=== PATIENT | male | born 1990 | race Asian ===

== ENCOUNTER → 2016-12-28 | Outpatient (CLI) | payer OTHER ==
[~2016-12-28] MED LIST: ISN300 PO; OPTIRAY 320 IV PRN; PYR500 PO; RFM300 PO; [UNRECOGNIZED DRUG - CODE] PO
--- NOTE | 2016-12-28 13:41 | DIAGNOSTIC IMAGING REPORT ---
CT SCAN OF THE CHEST WITH IV CONTRAST CLINICAL HISTORY: Supraclavicular lymphadenopathy. COMPARISON STUDY: No priors. TECHNIQUE: Following the IV administration of 93 cc of Optiray 320, CT scan of the thorax was performed from the thoracic inlet to the upper abdomen. Images are reviewed in the axial, sagittal, and coronal planes. IV contrast was administered without complication. CT DOSE: 247.27 mGycm FINDINGS: Thyroid: Imaged portions of the thyroid gland are normal in size and attenuation. Thoracic aorta: The thoracic aorta is normal in caliber and demonstrates standard 3-vessel arch anatomy. No dissection is seen. Pulmonary vasculature: The pulmonary trunk is normal in caliber. There are no filling defects identified in the central pulmonary vessels to indicate pulmonary embolus. Note that this examination was not protocoled for evaluation of the pulmonary arteries. Heart: The heart is normal in size and configuration, and without pericardial effusion. Lungs and pleural spaces: There are 2 pleural-based nodules in the right lower lobe. The largest nodule is seen towards the lung base on image #255 and measures 2.1 x 2.9 cm. Small nodule located more superiorly on image #181 and measures 1.3 cm. There is trace right pleural effusion. There are foci of groundglass consolidation seen throughout the right upper lobe and in the superior segment of the right lower lobe. No left pleural effusion or left-sided consolidation is seen. The trachea and central airways are clear. Mediastinum: There is no mediastinal lymphadenopathy. There are calcified mediastinal lymph nodes. Lower neck: There is a 2.2 x 2.3 cm essentially chronic nodule in the right cervical ventricular region seen on axial image #27. This likely represents an abnormal supraclavicular lymph node. No left supraclavicular adenopathy is seen. Lori: Clear. Axillae: There is no axillary lymphadenopathy. Upper abdomen: There is a calcified hepatic granuloma. Partially visualized upper abdominal viscera is otherwise within normal limits. Skeletal structures: No lytic or blastic bony lesions are seen. IMPRESSION: 1. There is a centrally necrotic right supraclavicular lymph node. 2. There are 2 pleural-based lesions in the right lower lobe measuring up to 2.9 cm. The larger lesion also demonstrates central necrosis and there is a trace associated right pleural effusion. 3. There are foci of nodular consolidation in the right upper lobe and the superior segment of the right lower lobe. 4. This constellation of findings is nonspecific but highly concerning for an infectious process such as tuberculosis/atypical mycobacterium. Although considered somewhat less likely a neoplastic etiology is not excluded. 5. There is no mediastinal or hilar lymphadenopathy. Findings were discussed with Dr. Mcwilliams at the time of interpretation. Electronically signed by: Pasquale Romero M.D. 12/28/2016 1:39 PM Dictated Date/Time: 12/28/2016 1:17 PM
== END | disposition home or self-care (01) ==
LOC: C.CTS 12:48
PROVIDERS: ATTEND Obstetrics & Gynecology
DX: R59.0 Localized enlarged lymph nodes (principal); R93.8 Abnormal findings on diagnostic imaging of other specified body structures; R91.1 Solitary pulmonary nodule

== ENCOUNTER 2016-12-30 11:06 | Inpatient (IN) | payer OTHER ==
[~2016-12-30] VITALS: Ht 160 cm; Wt 63.2 kg
[2016-12-30 12:26] LABS: BASO % 0.1 %; BASO ABS # 0.01 K/uL (0-0.2); COMPLETE YES; EOS % 0.4 %; HEMATOCRIT 42.7 % (42-52); IG% 0.3 %; LYMPH % 18.4 %; LYMPH ABS # 1.37 K/uL (1.2-3.4); MEAN CORPUSCULAR HEMOGLOBIN 30.1 pg (25-34); MEAN CORPUSCULAR HGB CONC 34.7 g/dl (32-36); MEAN PLATELET VOLUME 10.1 fL (7.4-10.4); NEUT % 74.8 %; PLATELET COUNT 296 K/uL (130-400); RED BLOOD COUNT 4.91 M/uL (4.7-6.1); WHITE BLOOD COUNT 7.45 K/uL (4.8-10.8)
[2016-12-30 12:39] LABS: INR 1.1 (0.9-1.1); PARTIAL THROMBOPLASTIN RATIO 1.4; PROTHROMBIN TIME (PATIENT) 11.4 SECONDS (9.0-12.0)
[2016-12-30 12:46] LABS: BUN/CREATININE RATIO 14.5 (10-20); CALCIUM 8.8 mg/dl (8.5-10.1); CREATININE 0.92 mg/dl (0.60-1.40); POTASSIUM 3.8 mmol/L (3.5-5.1)
[2016-12-30 12:49] LABS: ALB/GLOB RATIO 0.8 (0.9-2)
[2016-12-30] MEDS ORDERED: ACETAMINOPHEN 325 MG TAB PO PRN (13:30)
[2016-12-30] MEDS ORDERED: ONDANSETRON INJ 2 MG/ML 2 ML VIAL IV PRN (13:30)
--- NOTE | 2016-12-30 14:00 | History and Physical ---
History & Physical Date & Time of Service: Dec 30, 2016 at 13:39 Chief Complaint: Abnormal In Chest Primary Care Physician: No Doctor, Assigned History of Present Illness Source: patient, hospital records This patient is a pleasant 26-year-old male that was sent to the emergency department today for an evaluation of a right neck mass. The patient noticed a painful mass at the right base of his neck approximately 2 weeks ago. It has gotten less painful over the last few weeks. The patient saw [facility] (as he is a [employer] student) who sent the patient to thoracic surgery. A CT of the chest was ultimately performed and was abnormal. There was thought to be granulomas. In the emergency department today, a pathologist performed a biopsy of the neck mass. Dr. Brooks from pulmonology was involved due to the pulmonary lesions. The tissue appears to be consistent with granulomas. It is unclear at this point if this is possibly infectious versus malignancy versus sarcoid. The patient currently denies any symptoms. He has not had a cough, fever, hemoptysis, night sweats or weight loss. He has been fairly healthy over the last several months. 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 He has been in the country for the last 3 years. He denies any travel outside of the over the last 3 years he has been here. He was born and raised in [place]. He reports being up-to-date on all of his vaccines. This was required for school. Past Medical/Surgical History Medical Problems: (1) Avulsion fracture of navicular bone of foot Status: Resolved Family History No pertinent family history Father-hypertension Mother-"liver problems" Social History Smoking Status: Never Smoker Alcohol Use: none Drug Use: none Marital Status: single Housing status: lives with roommate Occupational Status: [employer] student Allergies Coded Allergies: No Known Allergies (Unverified , 04/27/15) Home Medications No Active Prescriptions or Reported Meds Review of Systems 10 system review performed and negative unless noted in HPI or below Physical Exam Vital Signs Date Time Temp Pulse Resp B/P Pulse Ox O2 Delivery O2 Flow Rate FiO2 12/30/16 11:16 104 19 143/111 96 Room Air VITALS: Vitals are noted on the nurse's note and reviewed by myself. Vital signs stable. GENERAL: 26-year-old male, in no acute distress, nondiaphoretic, well- developed well-nourished. SKIN: The skin was without rashes, erythema, edema, or bruising. HEAD: Normocephalic atraumatic. EYES: Pupils equal round and reactive to light Conjunctivae without injection, sclerae without icterus. Extraocular movements intact. MOUTH: Mucous membranes moist. NECK: Approximately 3 cm, circular, firm, nonmobile mass noted in the right supraclavicular area. Mildly tender to touch. No lymphadenopathy noted. HEART: Regular rate and rhythm without murmurs gallops or rubs. LUNGS: Coarse breath sounds bilaterally. No crackles or rhonchi. No wheezing.. No accessory muscle use. ABDOMEN: Positive bowel sounds x 4.Soft, nontender, without organomegaly. No guarding or rebound tenderness. MUSCULOSKELETAL: No muscle atrophy, erythema, or edema noted. Strength 5/5 throughout. NEURO: Patient was alert and oriented to person place and time. Normal sensation to touch. No focal neurological deficits. Diagnostics Laboratory Results Results Past 24 Hours Test 12/30/16 12:00 12/30/16 13:25 Range/Units White Blood Count 7.45 4.8-10.8 K/uL Red Blood Count 4.91 4.7-6.1 M/uL Hemoglobin 14.8 14.0-18.0 g/dL Hematocrit 42.7 42-52 % Mean Corpuscular Volume 87.0 80-100 fL Mean Corpuscular Hemoglobin 30.1 25-34 pg Mean Corpuscular Hemoglobin Concent 34.7 32-36 g/dl Platelet Count 296 130-400 K/uL Mean Platelet Volume 10.1 7.4-10.4 fL Neutrophils (%) (Auto) 74.8 % Lymphocytes (%) (Auto) 18.4 % Monocytes (%) (Auto) 6.0 % Eosinophils (%) (Auto) 0.4 % Basophils (%) (Auto) 0.1 % Neutrophils # (Auto) 5.57 1.4-6.5 K/uL Lymphocytes # (Auto) 1.37 1.2-3.4 K/uL Monocytes # (Auto) 0.45 0.11-0.59 K/uL Eosinophils # (Auto) 0.03 0-0.5 K/uL Basophils # (Auto) 0.01 0-0.2 K/uL RDW Standard Deviation 36.3 36.4-46.3 fL RDW Coefficient of Variation 11.5 11.5-14.5 % Immature Granulocyte % (Auto) 0.3 % Immature Granulocyte # (Auto) 0.02 0.00-0.02 K/uL Erythrocyte Sedimentation Rate 32 0-14 mm/hr Prothrombin Time 11.4 9.0-12.0 SECONDS Prothromb Time International Ratio 1.1 0.9-1.1 Activated Partial Thromboplast Time 35.5 21.0-31.0 SECONDS Partial Thromboplastin Ratio 1.4 Sodium Level 139 136-145 mmol/L Potassium Level 3.8 3.5-5.1 mmol/L Chloride Level 104 98-107 mmol/L Carbon Dioxide Level 24 21-32 mmol/L Anion Gap 11.0 3-11 mmol/L Blood Urea Nitrogen 13 7-18 mg/dl Creatinine 0.92 0.60-1.40 mg/dl Est Creatinine Clear Calc Drug Dose 99.6 ml/min Estimated GFR () 134.4 Estimated GFR (Non- 116.0 BUN/Creatinine Ratio 14.5 10-20 Random Glucose 117 70-99 mg/dl Calcium Level 8.8 8.5-10.1 mg/dl Total Bilirubin 0.5 0.2-1 mg/dl Aspartate Amino Transf (AST/SGOT) 11 15-37 U/L Alanine Aminotransferase (ALT/SGPT) 15 12-78 U/L Alkaline Phosphatase 89 45-117 U/L Total Protein 8.2 6.4-8.2 gm/dl Albumin 3.7 3.4-5.0 gm/dl Globulin 4.5 2.5-4.0 gm/dl Albumin/Globulin Ratio 0.8 0.9-2 Microbiology Results 12/30/16 Blood Culture, Received Pending 12/30/16 Blood Culture, Received Pending Diagnostic Radiology CT SCAN OF THE CHEST WITH IV CONTRAST CLINICAL HISTORY: Supraclavicular lymphadenopathy. COMPARISON STUDY: No priors. TECHNIQUE: Following the IV administration of 93 cc of Optiray 320, CT scan of the thorax was performed from the thoracic inlet to the upper abdomen. Images are reviewed in the axial, sagittal, and coronal planes. IV contrast was administered without complication. CT DOSE: 247.27 mGycm FINDINGS: Thyroid: Imaged portions of the thyroid gland are normal in size and attenuation. Thoracic aorta: The thoracic aorta is normal in caliber and demonstrates standard 3-vessel arch anatomy. No dissection is seen. Pulmonary vasculature: The pulmonary trunk is normal in caliber. There are no filling defects identified in the central pulmonary vessels to indicate pulmonary embolus. Note that this examination was not protocoled for evaluation of the pulmonary arteries. Heart: The heart is normal in size and configuration, and without pericardial effusion. Lungs and pleural spaces: There are 2 pleural-based nodules in the right lower lobe. The largest nodule is seen towards the lung base on image #255 and measures 2.1 x 2.9 cm. Small nodule located more superiorly on image #181 and measures 1.3 cm. There is trace right pleural effusion. There are foci of groundglass consolidation seen throughout the right upper lobe and in the superior segment of the right lower lobe. No left pleural effusion or left-sided consolidation is seen. The trachea and central airways are clear. Mediastinum: There is no mediastinal lymphadenopathy. There are calcified mediastinal lymph nodes. Lower neck: There is a 2.2 x 2.3 cm essentially chronic nodule in the right cervical ventricular region seen on axial image #27. This likely represents an abnormal supraclavicular lymph node. No left supraclavicular adenopathy is seen. Lori: Clear. Axillae: There is no axillary lymphadenopathy. Upper abdomen: There is a calcified hepatic granuloma. Partially visualized upper abdominal viscera is otherwise within normal limits. Skeletal structures: No lytic or blastic bony lesions are seen. IMPRESSION: 1. There is a centrally necrotic right supraclavicular lymph node. 2. There are 2 pleural-based lesions in the right lower lobe measuring up to 2.9 cm. The larger lesion also demonstrates central necrosis and there is a trace associated right pleural effusion. 3. There are foci of nodular consolidation in the right upper lobe and the superior segment of the right lower lobe. 4. This constellation of findings is nonspecific but highly concerning for an infectious process such as tuberculosis/atypical mycobacterium. Although considered somewhat less likely a neoplastic etiology is not excluded. 5. There is no mediastinal or hilar lymphadenopathy. Impression Assessment and Plan (1) Pulmonary lesion, right (2) Neck mass 26-year-old male presents with a right neck mass and pulmonary lesions- suspicious for possible neoplastic process versus infectious etiology such as TB or possibly sarcoidosis -Admit to medical floor -Obtain 3 AFBs first thing in the morning. If no sputum is produced, please administer hypertonic saline nebulizer solution prior to sputum culture -Send a QuantiFERON gold -Airborne precautions -Pulmonary consult-Dr. Brooks aware -If unable to get an adequate sputum sample, consider NPO after midnight on Monday for a [facility] on Monday morning DVT prophylaxis -Teds, SCDs, ambulation in the room CODE STATUS -LEVEL I FULL CODE Level of Care Med/Surg Resuscitation Status FULL RESUSCITATION VTE Prophylaxis VTE Risk Assessment Done? Y/N: Yes Risk Level: Low Given or contraindicated: Jc Sow, SCD's Note Dipak Capellan MD: Patient was seen and examined in the Emergency Department. Case was discussed with Dr. Brooks from Pul and Krys Daley PA-C. I agree with her assessment and plan as written above. Patient presented with an enlarged, painful right supraclavicular mass. On exam, lungs clear. Heart regular. Will maintain isolation precautions while awaiting sputum samples. May need to consider bronchoscopy if unable to provide adequate specimens. If negative for AFB, will need further work up for inflammatory vs malignant etiologies.
--- NOTE | 2016-12-30 14:49 | Pulmonary Consultation ---
History General Date of Service: Dec 30, 2016. Stated Complaint: Abnormal In Chest HPI The patient is a 26 year old male who presents to [facility] with complaints of Abnormal In Chest. The patient's primary care provider is No Doctor, Assigned. CC: 15-20 mm right supraclavicular lymph node Consulting Physician: [facility] physician Villa Mcwilliams M.D. 26-year-old gentleman initially seen at the [facility] for right sided supraclavicular lymph (RSL) node noted to be causing discomfort. This work-up lead the team to obtain a CT of the thorax and he was also noted to have other abnormal findings (please see below). After this initial work-up he was sent to see Jesus Rossi but after we spoke I asked Mr. Rossi to send the patient to the ED for emergent work-up. Dr. Damian Gordon and his team performed a FRACISCO of the RSL and noted granulomas. At this time the patient will be admitted for r/o of active TB and further work-up of the RSL. The patient has been noting this RSL for the last 2-3 weeks with associated pain with movement. He also describes a history of posterior right sided pleurisy over the last 2 years as well. Denies: fever, chills, weight loss, night sweets, productive cough, myalgias or sick contacts, No family or relatives noted to have been treated for TB and he had a normal work-up prior to his move from [place] to [facility]. Travel history internationally in the past 21 days: No Traveled within the [place] in the past 21 days: No Review of symptoms: 12 point within normal limits Allergies: No known drug allergies Workup to Date: #1 CBC: Monocyte percentage elevated 9.1% #2 HIV: AG/AB, 4th generation: Nonreactive #3 T spot: Positive #4 thoracic CAT scan (personally reviewed) Calcified station 7 Right hemithorax posterior pleural thickening with a large 21 x 28 mm nodule in the right lower lobe posterior subsegment 13 mm appears to be pleural-based nodule superior subsegment right lower lobe Diffuse infiltrative/tree and but appearance in the right upper lobe and superior subsegment right lower lobe Centrally necrotic right supraclavicular lymph node Historian: patient, EMS Review of Systems Constitutional: reports: no symptoms Eyes: reports: no symptoms ENT: reports: other (sore lymphnode) Cardiovascular: reports: no symptoms Respiratory: reports: no symptoms Gastrointestinal: reports: no symptoms Genitourinary - Male: reports: no symptoms Musculoskeletal: reports: no symptoms Integumentary: reports: no symptoms Neurologic: reports: no symptoms Psychiatric: reports: no symptoms Endocrine: no symptoms Hematologic / Lymphatic: no symptoms Allergic / Immunologic: no symptoms Past Medical History Past Medical History: #1 avulsion fracture of the navicular bone Past Surgical History: no surgical history Family History No pertinent family history Social History Hx Tobacco Use In Past Year?: No Smoking Status: Never Smoker Marital status: single Housing status: lives with roommate 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 Allergies Coded Allergies: No Known Allergies (Unverified , 04/27/15) Current Medications Reported Home Medications Medications Dose Route/Sig Max Daily Dose Days Date Category No Active Prescriptions or Reported Medications Rx Physical Physical Exam Vital Signs: Date Time Temp Pulse Resp B/P Pulse Ox O2 Delivery O2 Flow Rate FiO2 12/30/16 13:33 83 20 146/95 96 Room Air 12/30/16 11:16 104 19 143/111 96 Room Air General Appearance: WELL-APPEARING, WD/WN, NO APPARENT DISTRESS, uncomfortable Head: NORMOCEPHALIC, ATRAUMATIC Eyes: PERRLA, NO DISCHARGE, EOMI, SCLERAE NORMAL, CONJUNCTIVAE NORMAL ENT: NORMAL EAR EXAM, NORMAL NASAL EXAM, NORMAL MOUTH EXAM, NORMAL THROAT EXAM , NORMAL DENTAL EXAM, NORMAL SINUS EXAM Neck: other (2cm right supraclavicular lymph node) Respiratory: BREATH SOUNDS NORMAL, CLEAR TO AUSCULTATION, CLEAR TO PERCUSSION, NO RESPIRATORY DISTRESS Cardiovasular: REGULAR RATE/RHYTHM, NORMAL S1S2, NO M/G/R, NO MURMUR, NO GALLOP , NO RUB, NO JVD Abdomen: NON TENDER, NORMAL BOWEL SOUNDS, NO REBOUND, NO MASSES, NO GUARDING, NO ORGANOMEGALY, NORMAL RECTAL EXAM Genitourinary - Male: EXTERNAL GENITALIA NORMAL Back: NORMAL INSPECTION, NO MIDLINE TENDERNESS, NO CVA TENDERNESS, NO PARAVERTEBRAL TTP Upper Extremities: NO EDEMA, NO DEFORMITY, NORMAL ROM Lower Extremities: NO EDEMA, NO DEFORMITY, NORMAL ROM Pulses: carotid (R) (2+), carotid (L) (2+), dorsalis pedis (R) (2+), dorsalis pedis (L) (2+) Neuro: ALERT, ORIENTED x 3, NORMAL MOTOR EXAM, NORMAL SENSATION, NORMAL CEREBELLAR EXAM, NORMAL SPEECH Reflexes: biceps (R) (2+), bicpes (L) (2+), patellar (L) (2+), achilles (R) (2+ ) Babinski Testing: right (downgoing), left (downgoing) Psychiatric: NORMAL AFFECT, NO SUICIDAL IDEATION Diagnostics Labs Results Past 24 Hours Test 12/30/16 00:00 12/30/16 12:00 12/30/16 13:55 Range/Units White Blood Count 7.45 4.8-10.8 K/uL Red Blood Count 4.91 4.7-6.1 M/uL Hemoglobin 14.8 14.0-18.0 g/dL Hematocrit 42.7 42-52 % Mean Corpuscular Volume 87.0 80-100 fL Mean Corpuscular Hemoglobin 30.1 25-34 pg Mean Corpuscular Hemoglobin Concent 34.7 32-36 g/dl Platelet Count 296 130-400 K/uL Mean Platelet Volume 10.1 7.4-10.4 fL Neutrophils (%) (Auto) 74.8 % Lymphocytes (%) (Auto) 18.4 % Monocytes (%) (Auto) 6.0 % Eosinophils (%) (Auto) 0.4 % Basophils (%) (Auto) 0.1 % Neutrophils # (Auto) 5.57 1.4-6.5 K/uL Lymphocytes # (Auto) 1.37 1.2-3.4 K/uL Monocytes # (Auto) 0.45 0.11-0.59 K/uL Eosinophils # (Auto) 0.03 0-0.5 K/uL Basophils # (Auto) 0.01 0-0.2 K/uL RDW Standard Deviation 36.3 36.4-46.3 fL RDW Coefficient of Variation 11.5 11.5-14.5 % Immature Granulocyte % (Auto) 0.3 % Immature Granulocyte # (Auto) 0.02 0.00-0.02 K/uL Erythrocyte Sedimentation Rate 32 0-14 mm/hr Prothrombin Time 11.4 9.0-12.0 SECONDS Prothromb Time International Ratio 1.1 0.9-1.1 Activated Partial Thromboplast Time 35.5 21.0-31.0 SECONDS Partial Thromboplastin Ratio 1.4 Sodium Level 139 136-145 mmol/L Potassium Level 3.8 3.5-5.1 mmol/L Chloride Level 104 98-107 mmol/L Carbon Dioxide Level 24 21-32 mmol/L Anion Gap 11.0 3-11 mmol/L Blood Urea Nitrogen 13 7-18 mg/dl Creatinine 0.92 0.60-1.40 mg/dl Est Creatinine Clear Calc Drug Dose 99.6 ml/min Estimated GFR () 134.4 Estimated GFR (Non- 116.0 BUN/Creatinine Ratio 14.5 10-20 Random Glucose 117 70-99 mg/dl Calcium Level 8.8 8.5-10.1 mg/dl Total Bilirubin 0.5 0.2-1 mg/dl Aspartate Amino Transf (AST/SGOT) 11 15-37 U/L Alanine Aminotransferase (ALT/SGPT) 15 12-78 U/L Alkaline Phosphatase 89 45-117 U/L Total Protein 8.2 6.4-8.2 gm/dl Albumin 3.7 3.4-5.0 gm/dl Globulin 4.5 2.5-4.0 gm/dl Albumin/Globulin Ratio 0.8 0.9-2 Microbiology Results 12/30/16 Blood Culture, Received Pending 12/30/16 Blood Culture, Received Pending Diagnostic Radiology thoracic CAT scan (personally reviewed) Calcified station 7 Right hemithorax posterior pleural thickening with a large 21 x 28 mm nodule in the right lower lobe posterior subsegment 13 mm appears to be pleural-based nodule superior subsegment right lower lobe Diffuse infiltrative/tree and but appearance in the right upper lobe and superior subsegment right lower lobe Centrally necrotic right supraclavicular lymph node Impression Assessment and Plan 26 y/o male from [facility] with abnormal thoracic CT and Granulomas on Bx : 1) Granulomas: The top three differentials at this time are TB/atypical organisms, Lymphoma or Sarcoid. We should move forward with continued droplet precautions and obtain am sputum for AFB analysis and if necessary bronchoscopy of ENT surgical excision of the palpable cervical lymph-node. I will also order a 24 urine Ca+ and f/u on the pathology/cultures(biopsy specimen sent for AFB). I have also asked the patient to obtain his immigration records/physical.
--- NOTE | 2016-12-30 17:20 | EMERGENCY ROOM VISIT NOTE ---
History Report prepared by Zackary: Ronni Yoo Under the Supervision of: Dr. Pasquale Mancuso M.D. First contact with patient: 11:32 Chief Complaint: OTHER COMPLAINT Stated Complaint: ABNORMAL IN CHEST History of Present Illness The patient is a 26 year old male who presents to the Emergency Room with complaints of a persistent lump on the right side of his neck for the past two weeks. The lump was initially very painful, but the pain has gradually been subsiding. The patient has not noticed any other swollen glands. He denies fevers, cough, or shortness of breath. The patient never had a growth like this before. He denies any chronic health problems. The patient was initially seen by [facility] for the growth, who referred him to a Bridge Maintenance Worker. (Bridge Maintenance Worker) referred the patient to the ED. The patient had blood work, an X-ray, and a CT scan two days ago. The imaging studies showed findings concerning for TB or lymphoma. The patient has no known history of TB, but hasn't been tested. He does not have any known exposure to TB. Source of History: patient Onset: two weeks Position: neck Quality: other (abnormal lump) Timing: other (persistent) Associated Symptoms: No SOB, No cough, No fevers, No lymphadenopathy Review of Systems See HPI for pertinent positives & negatives. A total of 10 systems reviewed and were otherwise negative. Past Medical & Surgical Medical Problems: (1) Avulsion fracture of navicular bone of foot (2) Neck mass (3) Pulmonary lesion, right Family History No pertinent family history Social History Smoking Status: Never Smoker Occupation Status: [employer] student Current/Historical Medications No Active Prescriptions or Reported Meds Allergies Coded Allergies: No Known Allergies (Unverified , 04/27/15) Physical Exam Vital Signs Date Time Temp Pulse Resp B/P Pulse Ox O2 Delivery O2 Flow Rate FiO2 12/30/16 13:33 83 20 146/95 96 Room Air 12/30/16 11:16 104 19 143/111 96 Room Air Physical Exam GENERAL: Patient is in no acute distress. HEENT: No acute trauma, normocephalic atraumatic, mucous membranes moist, no nasal congestion, no scleral icterus. Right supraclavicular firm nonmobile mass was noted, mildly tender, no erythema. NECK: No stridor, no adenopathy, no meningismus, trachea is midline. LUNGS: Clear to auscultation bilaterally, no wheeze, no rhonchi, breath sounds equal. HEART: Without murmurs gallops or rubs, regular rate and rhythm. ABDOMEN: Soft, nontender, bowel sounds positive, no hernias, no peritonitis. EXTREMITIES: No cyanosis or edema, full range of motion of all the joints without pain or difficulty, no signs for acute trauma. NEUROLOGIC: Oriented x 3, no acute motor or sensory deficits, no focal weakness. SKIN: No rash, no jaundice, no diaphoresis. Medical Decision & Procedures Laboratory Results 12/30/16 12:00 Red Blood Count 4.91, Mean Corpuscular Volume 87.0, Mean Corpuscular Hemoglobin 30.1, Mean Corpuscular Hemoglobin Concent 34.7, Mean Platelet Volume 10.1, Neutrophils (%) (Auto) 74.8, Lymphocytes (%) (Auto) 18.4, Monocytes (%) (Auto) 6.0, Eosinophils (%) (Auto) 0.4, Basophils (%) (Auto) 0.1, Neutrophils # (Auto) 5.57, Lymphocytes # (Auto) 1.37, Monocytes # (Auto) 0.45, Eosinophils # (Auto) 0.03, Basophils # (Auto) 0.01 12/30/16 12:00 Test 12/30/16 00:00 12/30/16 12:00 White Blood Count 7.45 K/uL (4.8-10.8) Red Blood Count 4.91 M/uL (4.7-6.1) Hemoglobin 14.8 g/dL (14.0-18.0) Hematocrit 42.7 % (42-52) Mean Corpuscular Volume 87.0 fL (80-100) Mean Corpuscular Hemoglobin 30.1 pg (25-34) Mean Corpuscular Hemoglobin Concent 34.7 g/dl (32-36) Platelet Count 296 K/uL (130-400) Mean Platelet Volume 10.1 fL (7.4-10.4) Neutrophils (%) (Auto) 74.8 % Lymphocytes (%) (Auto) 18.4 % Monocytes (%) (Auto) 6.0 % Eosinophils (%) (Auto) 0.4 % Basophils (%) (Auto) 0.1 % Neutrophils # (Auto) 5.57 K/uL (1.4-6.5) Lymphocytes # (Auto) 1.37 K/uL (1.2-3.4) Monocytes # (Auto) 0.45 K/uL (0.11-0.59) Eosinophils # (Auto) 0.03 K/uL (0-0.5) Basophils # (Auto) 0.01 K/uL (0-0.2) RDW Standard Deviation 36.3 fL (36.4-46.3) RDW Coefficient of Variation 11.5 % (11.5-14.5) Immature Granulocyte % (Auto) 0.3 % Immature Granulocyte # (Auto) 0.02 K/uL (0.00-0.02) Erythrocyte Sedimentation Rate 32 mm/hr (0-14) Prothrombin Time 11.4 SECONDS (9.0-12.0) Prothromb Time International Ratio 1.1 (0.9-1.1) Activated Partial Thromboplast Time 35.5 SECONDS (21.0-31.0) Partial Thromboplastin Ratio 1.4 Anion Gap 11.0 mmol/L (3-11) Est Creatinine Clear Calc Drug Dose 99.6 ml/min Estimated GFR () 134.4 Estimated GFR (Non- 116.0 BUN/Creatinine Ratio 14.5 (10-20) Calcium Level 8.8 mg/dl (8.5-10.1) Total Bilirubin 0.5 mg/dl (0.2-1) Aspartate Amino Transf (AST/SGOT) 11 U/L (15-37) Alanine Aminotransferase (ALT/SGPT) 15 U/L (12-78) Alkaline Phosphatase 89 U/L (45-117) Total Protein 8.2 gm/dl (6.4-8.2) Albumin 3.7 gm/dl (3.4-5.0) Globulin 4.5 gm/dl (2.5-4.0) Albumin/Globulin Ratio 0.8 (0.9-2) Laboratory results reviewed by me. ED Course 1140: The patient was evaluated in room C10. A complete history and physical exam was performed. 1148: Discussed the case with Dr. Brooks, Bridge Maintenance Worker. He will contact a Pathologist about acquiring a biopsy of the mass in the ED. 1230: The patient was evaluated by Pathology. TB is still considered part of the differential. Will page medicine. 1238: Discussed the case with the [facility] Hospitalist Service. The patient will be evaluated. Medical Decision Differential diagnosis includes malignancy, infection such as TB, lymphoma, abscess, lymphadenopathy. There is no leukocytosis or concerning anemia. Sedimentation rate is mildly elevated. No significant electrolyte abnormality or kidney failure. There is no coagulopathy. I did review the CT results from 2 days ago, the findings were concerning for malignancy versus possibly infection such as TB. The pathologist here at the hospital was able to perform a bedside biopsy of the lesion. There was a granuloma seen. Because of the granuloma and concerns for TB, the patient will be brought into the hospital. Isolation precautions were instituted when the patient first arrived at our ER. The patient is aware of all his findings. He is being seen by the hospitalist. I did speak to the shelter case manager. Consults Time Called: 1143 Consulting Physician: Dr. Brooks, Bridge Maintenance Worker Returned Call: [phone] He will contact a Pathologist about acquiring a biopsy of the mass in the ED. Additional Consults: Time Called: 1234 Consulted Physician: [facility] Hospitalist Service Returned Call: [phone] Impression Primary Impression: Mass of right side of neck Scribe Attestation The scribe's documentation has been prepared under my direction and personally reviewed by me in its entirety. I confirm that the note above accurately reflects all work, treatment, procedures, and medical decision making performed by me. Departure Information Dispostion Being Evaluated By Hospitalist Prescriptions No Active Prescriptions or Reported Meds Referrals No Doctor, Assigned (PCP) Patient Instructions My [facility]
[2016-12-30 17:49] VITALS: BP 141/94; PULSE 94; TEMP 36.7; Ht 160 cm; Wt 63.2 kg
[2016-12-30] MEDS ORDERED: INFLUENZA VIRUS QUAD VACCINE 0.5 ML SYR IM. ONE (18:30)
[2016-12-30] MEDS ORDERED: INFLUENZA ADMINISTRATION CHARGE ONE (18:30)
[2016-12-30] MEDS ORDERED: PNEUMOCOCCAL ADMINISTRATION CHARGE ONE (18:30)
[2016-12-30] MEDS ORDERED: PNEUMOCOCCAL POLYSACCHARIDES 25 MCG/0.5 ML VIAL/SYR IM. ONE (18:30)
[2016-12-31 00:13] VITALS: BP 128/83; PULSE 73; TEMP 36.8; O2SAT 98
[2016-12-31] MEDS: ALBUTEROL 0.083% NEBU SOLN 3 ML VIAL INH PRN (05:59)
[2016-12-31] MEDS: SODIUM CHLORIDE 7% 4 ML NEB INH SCH (06:00)
[2016-12-31 06:09] VITALS: PULSE 89; O2SAT 96
[2016-12-31 06:55] VITALS: BP 126/82; PULSE 94; TEMP 37.1; O2SAT 97
[2016-12-31 15:03] VITALS: BP 124/86; PULSE 84; TEMP 36.7; O2SAT 96
[2016-12-31 16:20] VITALS: O2SAT 96
[2017-01-01 01:01] VITALS: BP 129/79; PULSE 95; TEMP 36.9; O2SAT 96
[2017-01-01] MEDS: SODIUM CHLORIDE 7% 4 ML NEB INH SCH (06:05)
[2017-01-01 06:06] VITALS: PULSE 80; O2SAT 94
[2017-01-01 07:32] VITALS: BP 119/87; PULSE 107; TEMP 36.7; O2SAT 96
--- NOTE | 2017-01-01 14:22 | Hospitalist Progress Note ---
Hospitalist Progress Note Date of Service Dec 31, 2016. Subjective Pt evaluation today including: conversation w/ patient, physical exam, lab review, review of studies, review of inpatient medication list This note is for encounter on 12/31/2016. Patient has no new complaints. Denies cough, SOB, N/V/D. Still with some pleuritic-type pain in posterior right hemithorax, unchanged from admission. Medications Current Inpatient Medications Medications (Trade) Dose Ordered Sig/Petros Route Start Time Stop Time Status Last Admin Dose Admin Acetaminophen (Tylenol Tab) 650 mg Q4H PRN PO 12/30/16 13:30 01/29/17 13:29 Ondansetron HCl (Zofran Inj) 4 mg Q6H PRN IV 12/30/16 13:30 01/29/17 13:29 Sodium Chloride (Sodium Chloride 7% Neb Solution) 4 ml DAILY@0600 INH 12/31/16 06:00 01/30/17 05:59 01/01/17 06:05 4 ML Albuterol Sulfate (Ventolin 0.083% 2.5MG/3ML Neb) 2.5 mg Q6R PRN INH 12/31/16 04:30 01/30/17 04:29 12/31/16 05:59 2.5 MG Objective Vital Signs Date Time Temp Pulse Resp B/P Pulse Ox O2 Delivery O2 Flow Rate FiO2 01/01/17 08:12 Room Air 01/01/17 07:32 36.7 107 16 119/87 96 Room Air 01/01/17 06:06 80 18 94 Room Air 01/01/17 01:01 36.9 95 18 129/79 96 Room Air 01/01/17 00:00 Room Air 12/31/16 16:20 96 Room Air 12/31/16 15:03 36.7 84 16 124/86 96 Room Air Physical Exam General Appearance: no apparent distress Respiratory/Chest: normal breath sounds, no respiratory distress Cardiovascular: regular rate, rhythm Abdomen: non tender, soft Extremities: no pedal edema Neurologic/Psychiatric: alert, oriented x 3 Skin: warm/dry Assessment and Plan (1) Granulomatous disease (2) Neck mass (3) Pulmonary lesion, right Previously healthy 26-year-old male from [place], came to [facility] three years ago. He presented to the ED c/o of approximately 2 week history of enlarging right supraclavicular mass. Biopsy of the lesion in the ED revealed granulomas. CT revealed right-sided pleural-based lesions and what appear to be granulomas in the liver. He has been admitted for isolation until tuberculosis can be excluded. Patient thus far unable to provide adequate sputum samples for AFB testing. Per Pulm, may need to consider bronch on Monday if unable to provide adequate specimens. Discharge planning: home
--- NOTE | 2017-01-01 14:33 | Hospitalist Progress Note ---
Hospitalist Progress Note Date of Service Jan 01, 2017. Subjective Pt evaluation today including: conversation w/ patient, physical exam, review of inpatient medication list Denies any new issues. No cough, shortness of breath, or sputum. Still unable to provide specimen for AFB smears despite hypertonic saline neb treatments. Medications Current Inpatient Medications Medications (Trade) Dose Ordered Sig/Petros Route Start Time Stop Time Status Last Admin Dose Admin Acetaminophen (Tylenol Tab) 650 mg Q4H PRN PO 12/30/16 13:30 01/29/17 13:29 Ondansetron HCl (Zofran Inj) 4 mg Q6H PRN IV 12/30/16 13:30 01/29/17 13:29 Sodium Chloride (Sodium Chloride 7% Neb Solution) 4 ml DAILY@0600 INH 12/31/16 06:00 01/30/17 05:59 01/01/17 06:05 4 ML Albuterol Sulfate (Ventolin 0.083% 2.5MG/3ML Neb) 2.5 mg Q6R PRN INH 12/31/16 04:30 01/30/17 04:29 12/31/16 05:59 2.5 MG Objective Vital Signs Date Time Temp Pulse Resp B/P Pulse Ox O2 Delivery O2 Flow Rate FiO2 01/01/17 08:12 Room Air 01/01/17 07:32 36.7 107 16 119/87 96 Room Air 01/01/17 06:06 80 18 94 Room Air 01/01/17 01:01 36.9 95 18 129/79 96 Room Air 01/01/17 00:00 Room Air 12/31/16 16:20 96 Room Air 12/31/16 15:03 36.7 84 16 124/86 96 Room Air Physical Exam General Appearance: no apparent distress Eyes: sclerae normal Neck: + pertinent finding (visible mass present right supraclavicular region) Respiratory/Chest: lungs clear, no respiratory distress Cardiovascular: regular rate, rhythm, no murmur Abdomen: normal bowel sounds, non tender, soft Extremities: no pedal edema Neurologic/Psychiatric: no motor/sensory deficits, alert, oriented x 3 Skin: normal color, warm/dry Assessment and Plan (1) Granulomatous disease (2) Neck mass (3) Pulmonary lesion, right Previously healthy 26-year-old male from [place], came to [facility] three years ago. He presented to the ED c/o of approximately 2 week history of enlarging right supraclavicular mass. Biopsy of the lesion in the ED revealed granulomas. CT revealed right-sided pleural-based lesions and what appear to be granulomas in the liver. He has been admitted for isolation until tuberculosis can be excluded. Still unable to provide sputum specimen. Will make NPO after midnight and discuss possible bronchoscopy with Pulm. Continued [facility] stay due to: other (Airborne precaution isolation required) Discharge planning: home
[2017-01-01 15:21] VITALS: BP 127/88; PULSE 91; TEMP 36.4; O2SAT 96
[2017-01-01 16:02] VITALS: O2SAT 96
[2017-01-01 18:18] LABS: QUANTIF TB AG-NIL 9.48 IU/ML; QUANTIFERON NIL 1.37 IU/ML
[2017-01-01 22:05] LABS: CALCIUM URINE 6.6 mg/dl
[2017-01-01 23:30] VITALS: BP 121/84; PULSE 97; TEMP 37.1; O2SAT 96
[2017-01-02] VITALS (17 sets, daily range): BP systolic 115–148; BP diastolic 77–112; PULSE 73–100; TEMP 36.4–36.9; O2SAT 91–99
[2017-01-02] MEDS: ALBUTEROL 0.083% NEBU SOLN 3 ML VIAL INH PRN (05:59)
[2017-01-02] MEDS: SODIUM CHLORIDE 7% 4 ML NEB INH SCH (05:59)
--- NOTE | 2017-01-02 09:11 | PROGRESS NOTE ---
DATE: 01/02/2017 The patient is comfortable this morning. He has been unable to produce any significant sputum even with hypertonic saline. He denies fevers or night sweats, slept fairly well last night. His right neck mass biopsy has revealed granulomas, lymphocytes and histiocytes. No malignancy was noted. There is no mention whether these were necrotizing granulomas. The vast majority of the specimen was sent to micro that was done on the . The AFB smears are still pending apparently. Nonetheless, he feels well at the present time. PHYSICAL EXAMINATION: VITAL SIGNS: Stable. He is afebrile. Blood pressure 121/84, oxygen saturation 97% on room air. Weight is 63 kilograms. According to nurses' notes he had a fairly good night and evening and no significant abnormalities along the biopsy site of the right supraclavicular mass. HEENT: Unremarkable. Right supraclavicular mass is readily palpable and slightly tender. No other nodes are palpable anywhere. HEART: Regular rate and rhythm. LUNGS: Clear. ABDOMEN: Soft, nontender. No organomegaly noted. EXTREMITIES: He has no cyanosis, clubbing or edema. QuantiFERON gold was positive. Sed rate was 32. Hemoglobin, hematocrit, white count, PRP was unremarkable, glucose of 117. Coagulation profile was unremarkable. IMPRESSION: 1. Right neck mass consistent with granulomas. Certainly conceivable this could be sarcoid; TB certainly needs to be considered as well. 2. Possible latent tuberculosis with positive QuantiFERON gold. CT of the chest on the 1st did reveal some nodules as well. The 29 mm nodule in the right lung base, smaller nodule at 13 mm superior to that with small pleural effusion. Neck mass was noted as well. RECOMMENDATIONS: At this point, the patient is not producing any sputum. I would suggest surgical evaluation for removal of the right supraclavicular lymph node. That can be done as an outpatient. Infectious disease consultation should be placed for consideration for treatment for possible tuberculosis until the sputums have returned. He may need 4 or 5 medications instituted initially because he is from [place]. I believe well this could be done as an outpatient now since he is quite stable. We will await the results of the AFB smears from the neck biopsy as well, but I think removal of that lesion may be helpful with further culture. The patient was fairly anxious to be able to go home when he is out in public he could wear a mask till all the sputums return and an ID evaluation has been done. Follow up with Jesus Rossi PA-C as an outpatient within the next 2 weeks as well.
[2017-01-02] MEDS ORDERED: NURSING VERBAL MED ORDER ONE (13:15)
[2017-01-02] MEDS ORDERED: FENTANYL CITRATE INJ 50 MCG/1 ML 2 ML VIAL IV ONE (13:30)
[2017-01-02] MEDS ORDERED: MIDAZOLAM HCL 5 MG/ML 1 ML VIAL IV ONE (13:30)
--- NOTE | 2017-01-02 13:59 | Procedure Note ---
Pre-Mod Sedation Assessment General Date of Moderate Sedation: Jan 02, 2017. Vital Signs: Vital Signs Past 12 Hours Date Time Temp Pulse Resp B/P Pulse Ox O2 Delivery O2 Flow Rate FiO2 01/02/17 13:50 36.9 90 20 142/84 99 01/02/17 13:35 94 18 135/95 99 Nasal Cannula 2.0 01/02/17 13:25 92 15 142/92 98 Nasal Cannula 4.0 01/02/17 13:22 Mask 01/02/17 13:10 99 16 134/99 98 Nasal Cannula 4.0 01/02/17 13:10 100 18 148/101 98 Mask 6.0 01/02/17 13:05 100 18 148/101 98 Mask 6.0 01/02/17 13:00 100 18 148/101 98 Mask 6.0 01/02/17 13:00 36.6 95 18 148/101 98 Nasal Cannula 4.0 01/02/17 12:50 100 18 131/77 98 Mask 6.0 01/02/17 12:45 83 17 139/93 98 Mask 6.0 01/02/17 12:37 90 18 127/112 96 Room Air 6.0 01/02/17 11:46 36.6 96 16 115/77 97 Room Air 01/02/17 11:00 36.6 96 16 115/77 97 Room Air 01/02/17 08:00 97 Room Air 01/02/17 07:43 36.6 96 16 115/77 97 Room Air 01/02/17 05:59 99 16 97 Room Air 01/02/17 02:16 Room Air Review Airway Class: I Pre-Sedation Airway Assessment Oral Cavity: WNL Short Thick Neck: No Hx of Sleep Apnea: No Smoking Status: Unknown if Ever Smoked Mallampati Classification: Class I ASA Classification: Class I Procedure Planning Contraindications-for Mod Sed: None Yes Notes The planned sedation has been discussed with the patient and consent obtained. I have identified the patient, determined the appropriateness of sedation and have assessed the patient immediately prior to the procedure. All medicine(s) and interventions are by my order.
--- NOTE | 2017-01-02 13:59 | History & Physical Bridge Note ---
H&P Re-Evaluation Bridge Note: I have examined the patient, reviewed the History & Physical and in the interval since the performance of the History & Physical I have noted the following changes of clinical significance: No changes noted
--- NOTE | 2017-01-02 14:23 | Progress Note ---
Progress Note ID Consult Dictated #[id number] A/P: 1. + IGRA with abnml ct chest and neck mass with granuloma - highly concerning for TB -Continue airborne isolation pending bronch results -see consult for details -Additional recs pending results from bronch findings, it does not appear that neck aspirate was sent for culture -Will follow, thank you
--- NOTE | 2017-01-02 14:50 | Hospitalist Progress Note ---
Hospitalist Progress Note Date of Service Jan 02, 2017. (Krys Daley PA-C) Subjective Pt evaluation today including: conversation w/ patient, physical exam, chart review, conversation w/ building consultant, review of inpatient medication list Patient denies any cough, fever or chills. No swelling. No shortness of breath. Anxious to be discharged home. Additional Comments: 6 system review negative. Please see pertinent positives in the history of present illness section. (Krys Daley PA-C) Objective Vital Signs Date Time Temp Pulse Resp B/P Pulse Ox O2 Delivery O2 Flow Rate FiO2 01/02/17 13:50 36.9 90 20 142/84 99 01/02/17 13:35 94 18 135/95 99 Nasal Cannula 2.0 01/02/17 13:25 92 15 142/92 98 Nasal Cannula 4.0 01/02/17 13:22 Mask 01/02/17 13:10 99 16 134/99 98 Nasal Cannula 4.0 01/02/17 13:10 100 18 148/101 98 Mask 6.0 01/02/17 13:05 100 18 148/101 98 Mask 6.0 01/02/17 13:00 100 18 148/101 98 Mask 6.0 01/02/17 13:00 36.6 95 18 148/101 98 Nasal Cannula 4.0 01/02/17 12:50 100 18 131/77 98 Mask 6.0 01/02/17 12:45 83 17 139/93 98 Mask 6.0 01/02/17 12:37 90 18 127/112 96 Room Air 6.0 01/02/17 11:46 36.6 96 16 115/77 97 Room Air 01/02/17 11:00 36.6 96 16 115/77 97 Room Air 01/02/17 08:00 97 Room Air 01/02/17 07:43 36.6 96 16 115/77 97 Room Air 01/02/17 05:59 99 16 97 Room Air 01/02/17 02:16 Room Air 01/01/17 23:30 37.1 97 18 121/84 96 Room Air 01/01/17 16:02 96 Room Air 01/01/17 15:21 36.4 91 16 127/88 96 Room Air (Krys Daley PA-C) Physical Exam General Appearance: no apparent distress Respiratory/Chest: lungs clear Cardiovascular: regular rate, rhythm Extremities: non-tender, no pedal edema Neurologic/Psychiatric: no motor/sensory deficits, oriented x 3 (Krys Daley PA-C) Laboratory Results Last 24 Hours Test 01/01/17 20:20 01/02/17 00:00 Urine Collection Time 24 HOURS Urine Total Volume 2350 mL Urine Calcium 24 Hour 155.1 mg/24 HR (Krys Daley PA-C) Assessment and Plan (1) Neck mass (2) Pulmonary lesion, right 26-year-old male presents with a right neck mass and pulmonary lesions- suspicious for possible neoplastic process versus infectious etiology such as TB or possibly sarcoidosis Neck Mass/pulm lesions-QuantiFERON gold positive -Patient was unable to produce adequate sputum even with the hypertonic saline nebulizer treatment prior -Case was discussed with pulmonology today and also Dr. Palafox. Plan is for a [facility] this afternoon -Patient will then need a sputum AFB 8 hours later (2200 tonight)--> and then one final AFB 8 hours after that( 01/03 @ 0600). These orders will be placed. -Continue Airborne precautions DVT prophylaxis -Teds, SCDs, ambulation in the room CODE STATUS -LEVEL I FULL CODE (Krys Daley PA-C) PA Physician Supervision Note: I interviewed and examined the patient. Discussed with Krys Daley PAC and agree with findings and plan as documented in the note. Any exceptions or clarifications are listed here: None THis pt is eager to leave but understands that he needs to have a diagnosis, did undergo bronchoscopy 01/02 VSS car is regular lungs are clear neck mass is firm defined diagnosis is paramount to help with public health concern, if no organisms seen on bronchoscopy will hope ID consult will help plan a treatment plan or will recommend further tissue diagnosis Documented By: Cristian Tello (Cristian Tello M.D.)
--- NOTE | 2017-01-02 14:55 | OPERATIVE REPORT ---
DATE OF OPERATION: 01/02/2017 PROCEDURE: Fiberoptic bronchoscopy with bronchoalveolar lavage. INDICATIONS: Right upper lobe, right lower lobe superior segment ground-glass opacities/consolidation with right lower lobe pleural based mass in a patient with history of granulomatous inflammation, rule out TB versus other etiology. ANESTHESIA PREOPERATIVELY: None. ANESTHESIA DURING PROCEDURE: 7 mg IV Versed, 50 mcg IV fentanyl, 20 mL 2% Xylocaine above and below the cords, 4% viscous Xylocaine intranasally. PROCEDURE IN DETAIL: Fiberoptic bronchoscope was inserted through right naris with minimal difficulty and passed to the level of the true vocal cords. The cords appear to approximate normally with phonation without evidence of lesions or paralysis. The area was anesthetized with 2% Xylocaine spray and the scope was then introduced into the right and left tracheobronchial tree. The scope was introduced into the trachea and then to the level of the pepe. The pepe was sharp. Right main stem bronchus was explored initially and no endobronchial lesions were seen. The right upper lobe, the apical posterior, anterior segments, bronchus intermedius, right middle lobe, medial and lateral segments and right lower lobe were free of endobronchial lesions down to subsegmental bronchi. Left tracheobronchial tree was explored and no endobronchial lesion was seen. Left upper lobe, lingular subdivision and left lower lobe were free of endobronchial lesions down to subsegmental bronchi. The scope was then withdrawn to the pepe and then the right upper lobe with all 3 segments, apical, posterior, and anterior segments and their subsegments copiously lavaged with Normosol and the aspirate sent for appropriate studies. The right middle lobe and right lower lobe were also copiously lavaged with normal saline, especially the superior segment of right lower lobe and a small amount of mucopurulent secretion was lavaged and aspirated until clear and sent for appropriate studies. The right middle lobe showed some mild mucosal irregularity and was brushed for cytologic preparation x2 with no bleeding encountered. No biopsies were obtained. Transbronchial biopsy was not attempted. The procedure was terminated. The patient was given a nebulizer treatment with Xopenex 1.25 mg and then transferred back to the medical floor, hemodynamically stable with no signs of respiratory compromise. We will await microbiological and cytologic examination of the bronchial washings and brushings. The patient was kept in respiratory isolation during the duration of the procedure. I attest to the content of the Intraoperative Record and any orders documented therein. Any exceptio ns are noted below.
--- NOTE | 2017-01-02 21:59 | INFECT. DISEASE CONSULTATION ---
DATE OF CONSULTATION: 01/02/2017 REQUESTING PHYSICIAN: Dr. Capellan. HISTORY OF PRESENT ILLNESS: This is a 26-year-old gentleman who was sent in to the Emergency Room by [facility] after he was seen there initially for evaluation of a right neck mass. This was first noticed 2 weeks ago. The patient states initially it was painful to palpation, but that has improved over the past few weeks. 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 He previously was in [place]. He also had a CAT scan of the chest, which was done as an outpatient on the , which was markedly abnormal. This showed a right upper lobe consolidation with right lower lobe consolidation. There was also a 2.2 x 2.3 cm mass in the neck which was felt to be supraclavicular lymphadenopathy. He was also found to have a calcified hepatic granuloma and 2 right lower lobe pleural-based lesions which measured 2.9 cm which also had central necrosis and associated effusion. The patient denies any shortness of breath or cough at home. Because of these findings, a QuantiFERON Gold was obtained and this is positive. He denies having any history of known TB contacts either in the [place] or in [place]. He does admit to having a BCG vaccination as a young child. He states he does not recall having TB testing done prior to this evaluation. He did undergo a biopsy of a neck mass in the Emergency Room. This did not show any malignancy and there were no granulomas identified on pathology. He also has had blood cultures obtained since admission to the hospital and those are negative. Per the procedure note, AFB culture was done of the biopsy; however, I do not see an order for culture from his neck biopsy. He currently denies any chest pain, cough or shortness of breath. He denies any pleuritic chest pain. He denies any hemoptysis. He denies any weight loss, night sweats at home. He denies any fevers or chills. Again, he states he has no history of TB contacts that he is aware of. He did have a bronchoscopy done earlier this afternoon. He states he is feeling somewhat dizzy post procedure. He denies any nausea, vomiting, diarrhea or abdominal pain. He states that he is hungry. He currently has no sick contacts. All remaining review of systems are reviewed and are negative except as noted above. PAST MEDICAL HISTORY: He has a history of foot fracture. PAST SURGICAL HISTORY: Noncontributory. FAMILY HISTORY: Noncontributory. SOCIAL HISTORY: Negative for tobacco use, alcohol use or drug use. 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 ALLERGIES: He has no known drug allergies. TRAVEL AND TBI HISTORY: As above. CURRENT MEDICATIONS: Include albuterol, Tylenol and Zofran. PHYSICAL EXAMINATION: VITAL SIGNS: He has been afebrile since admission, pulse 90, respiratory rate 20, blood pressure 142/84, oxygen saturation is 99%. He is currently on room air. GENERAL: He is awake, alert and oriented x3, he was somewhat groggy on examination but appropriate. HEENT: Mucous membranes are moist. Extraocular muscles are intact. HEART: Regular. LUNGS: Clear bilaterally. ABDOMEN: Soft, nontender, nondistended. EXTREMITIES: There is no edema bilaterally. SKIN: Without rash. LABORATORY STUDIES: CBC on the reveals a white blood cell count of 7.4, hemoglobin 14.8, hematocrit 42.7 and platelets are 296. Sed rate is elevated at 32. Chemistry panel on the 3rd revealed a sodium of 139, potassium 3.8, chloride 104, bicarbonate 24, BUN 13, creatinine 0.9, glucose is 117. LFTs are normal. Urinalysis was unremarkable. His QuantiFERON was positive, CMV and herpes are pending. Blood cultures are no growth to date x2 sets. Cultures from the bronchoscopy are pending. IMAGING DATA: CAT scan of the chest is as reviewed above. Again, this was done on December 28. ASSESSMENT AND PLAN: 1. Positive QuantiFERON with abnormal CT of the chest. This is highly concerning for active tuberculosis. I would maintain this patient in respiratory isolation pending the results of his bronchoscopy. If he does have a positive smear he will be started on a 4-drug tuberculosis therapy. His cultures are currently pending. He does admit to having BCG vaccination, but I do not believe that this would be relevant and certainly would not make his QuantiFERON positive, especially in the setting of an abnormal chest x-ray and CAT scan. We will follow along with you. Thank you for this consultation. BRODERICK
[2017-01-03 00:01] VITALS: BP 123/88; PULSE 92; TEMP 36.6; O2SAT 97
[2017-01-03 07:26] VITALS: BP 136/83; PULSE 82; TEMP 36.6; O2SAT 96
[2017-01-03 08:00] VITALS: O2SAT 96
--- NOTE | 2017-01-03 14:50 | Progress Note ---
Subjective Date of Service: Jan 03, 2017. Subjective this pt has no active symptoms, very little cough Problem List Medical Problems: (1) Mass of right side of neck Status: Acute Review of Systems Constitutional: No chills, No fatigue, No fever, No weakness Respiratory: No cough, No shortness of breath Cardiac: No chest pain, No edema Abdomen: No diarrhea, No nausea, No pain, No vomiting Male : No dysuria, No urinary frequency Objective Vital Signs Date Time Temp Pulse Resp B/P Pulse Ox O2 Delivery O2 Flow Rate FiO2 01/03/17 07:26 36.6 82 20 136/83 96 Room Air 01/03/17 00:01 36.6 92 18 123/88 97 Room Air 01/03/17 00:00 Room Air 01/02/17 20:11 36.7 97 18 127/82 91 Room Air 01/02/17 16:00 Room Air 01/02/17 15:30 36.4 73 16 132/88 96 Room Air 73 01/02/17 14:59 36.7 78 16 125/87 98 Room Air 01/02/17 13:50 36.9 90 20 142/84 99 01/02/17 13:35 94 18 135/95 99 Nasal Cannula 2.0 01/02/17 13:25 92 15 142/92 98 Nasal Cannula 4.0 01/02/17 13:22 Mask 01/02/17 13:10 99 16 134/99 98 Nasal Cannula 4.0 01/02/17 13:10 100 18 148/101 98 Mask 6.0 01/02/17 13:05 100 18 148/101 98 Mask 6.0 01/02/17 13:00 100 18 148/101 98 Mask 6.0 01/02/17 13:00 36.6 95 18 148/101 98 Nasal Cannula 4.0 01/02/17 12:50 100 18 131/77 98 Mask 6.0 01/02/17 12:45 83 17 139/93 98 Mask 6.0 01/02/17 12:37 90 18 127/112 96 Room Air 6.0 01/02/17 11:46 36.6 96 16 115/77 97 Room Air 01/02/17 11:00 36.6 96 16 115/77 97 Room Air Physical Exam General Appearance: WD/WN, no apparent distress Neck: supple, + pertinent finding (lump at base of right anterior neck firm) Respiratory/Chest: chest non-tender, lungs clear, normal breath sounds Cardiovascular: regular rate, rhythm, no murmur Abdomen: normal bowel sounds, non tender, soft Extremities: no pedal edema, no calf tenderness Neurologic/Psychiatric: alert, oriented x 3 Assessment and Plan 26 M with a right neck mass and pulmonary lesions-suspicious for possible neoplastic process versus infectious etiology such as TB or possibly sarcoidosis Neck Mass/pulm lesions-QuantiFERON gold positive, s/p bronchoscopy, no results of acid fast stain 01/03 according to lab expect 01/04 will need ID instruction to determine plan of care if Bronchoscopy is not helpful in diagnosis -Continue Airborne precautions DVT prophylaxis ambulation in the room -LEVEL I FULL CODE Continued [facility] stay due to: other (Airborne precaution isolation required) Discharge planning: home
[2017-01-03 14:59] VITALS: BP 129/78; PULSE 88; TEMP 36.6; O2SAT 95
--- NOTE | 2017-01-03 15:42 | Progress Note ---
Subjective Date of Service: Jan 03, 2017. Subjective pt AFB smear from yesterday's broch pending, will be available tomorrow. routine culture and fungal smear negative. path from neck biopsy and multiple bronch washings negative for malignancy. afebrile. no am labs. Ct surgery eval pending. blood cultures negative. Problem List Medical Problems: (1) Mass of right side of neck Status: Acute Objective Vital Signs Date Time Temp Pulse Resp B/P Pulse Ox O2 Delivery O2 Flow Rate FiO2 01/03/17 14:59 36.6 88 20 129/78 95 Room Air 01/03/17 08:00 96 Room Air 01/03/17 07:26 36.6 82 20 136/83 96 Room Air 01/03/17 00:01 36.6 92 18 123/88 97 Room Air 01/03/17 00:00 Room Air 01/02/17 20:11 36.7 97 18 127/82 91 Room Air 01/02/17 16:00 Room Air Laboratory Results Item Value Date Time Blood Culture - Preliminary Resulted 12/30/16 1200 Blood NO GROWTH TO DATE. Blood Culture - Preliminary Resulted 12/30/16 1205 Blood NO GROWTH TO DATE. Gram Stain - Final Resulted 01/02/17 0000 Bronchial Washings Right Lower Lobe Fungal Smear - Final Resulted 01/02/17 0000 Bronchial Washings Right Upper Lobe Last 24 Hours Test 01/03/17 07:53 Bedside Glucose 198 mg/dl Assessment and Plan (1) Granulomatous disease Assessment & Plan: concerned for tb, especially with +IGRA and negative path for malignancy, must also consider sarcoid. maintain airborne isolation for now pending smear. If smear + will start on meds for TB and pt will likely continue with [facility], however, I am concerned his current clinical findings are related to TB and will likely institute TB therapy if smear negative and follow AFB culture from bronch. will hold off on treating now as ct surgery eval is pending , if any procedure to be done will want highest yield from culture. will follow. maintain isolation for now. (2) Neck mass Continued [facility] stay due to: other (Airborne precaution isolation required) Discharge planning: home
--- NOTE | 2017-01-04 00:01 | SURGICAL CONSULTATION ---
DATE OF CONSULTATION: 01/03/2017 REASON FOR CONSULTATION: Right pleural based mass. 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 The patient was noted to have a right mass over the last few weeks and it had become more tender. He saw [facility] and they sent him to pulmonology who performed a CT of the chest. He underwent a fine needle aspiration in the ER and granulomas were noted. He denies productive cough. He has had no hemoptysis. He has had no weight loss or night sweats. PAST MEDICAL HISTORY: None. PAST SURGICAL HISTORY: 1. Avulsion fracture of navicular bone of foot (treated surgically). MEDICATIONS: No home medications. 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 He lives alone, does not smoke. FAMILY MEDICAL HISTORY: His mother suffers from hypertension and mother has some "liver problems." He has no children. REVIEW OF SYSTEMS: The patient's weight has been stable. He has had no night sweats or productive cough. He has just this tender mass in his right supraclavicular area on the right. He denies shortness of breath. He has had no hemoptysis. He has had no chills. He has had no GI or complaints. His weight has been stable. PHYSICAL EXAMINATION: GENERAL: This is a smallest male who stands 5 feet 3 inches tall and weighs 139 pounds. He wears glasses. HEENT: Extraocular movements are intact. Pupils are equal, round and reactive. Sclerae are anicteric. His teeth are in fairly good repair and his tongue is midline. He has no oral mucosal lesions. NECK: Supple. There is a very large right supraclavicular/cervical mass which is movable. It is a bit tender as has had a biopsy here. There is no ecchymosis. LUNGS: Clear HEART: He has regular rate and rhythm of her heart. No abdominal tenderness or masses. He has no ascites, hepatosplenomegaly. EXTREMITIES: He has no peripheral edema. He has no joint effusions. He has excellent peripheral blood flow. NEUROLOGIC: Completely intact. ASSESSMENT AND PLAN: 1. CT scan revealed a pleural based biopsy of a pleural-based mass which what appeared to be a necrotic center in the posterior lower right pleural cavity. In addition, I am concerned about the process of the right upper lobe and the large lymph node in the neck and is concerning that this may well represent tuberculosis. Should these cultures come back negative, we would of course consider doing something about either doing an excision biopsy of this neck mass or taking him to the operating room and doing a thoracoscopy. MTDD
[2017-01-04 00:39] VITALS: BP 127/76; PULSE 92; TEMP 37; O2SAT 96
[2017-01-04 07:56] VITALS: BP 119/73; PULSE 86; TEMP 36.7; O2SAT 95
[2017-01-04 08:00] VITALS: O2SAT 96
[2017-01-04] MEDS ORDERED: LIDOCAINE 4% W/AFRIN NASAL SOLN 4ML ONE (09:04)
[2017-01-04] MEDS ORDERED: LIDOCAINE HCL 2% LOCAL 50ML VIAL INFIL ONE (09:04)
[2017-01-04] MEDS ORDERED: MIDAZOLAM HCL 5 MG/ML 1 ML VIAL IV ONE (09:04)
[2017-01-04] MEDS ORDERED: LEVALBUTEROL 1.25MG/3ML NEB INH ONE (09:04)
[2017-01-04] MEDS ORDERED: FENTANYL CITRATE INJ 50 MCG/1 ML 2 ML VIAL IV ONE (09:04)
--- NOTE | 2017-01-04 10:32 | Progress Note ---
Subjective Date of Service: Jan 04, 2017. Subjective Pt evaluation today including: conversation w/ patient, physical exam, chart review, lab review pt seen in follow up, feeling well this am. anxious to be d/c. Smear from bronch negative AFB, fungal and routine cultures negative as well. blood cultures remain negative. Remains afebrile. Denies cough, sob, hemoptysis, f/c, night sweats. OOB to chair on my exam. Informed of negative smear. Denies pain at site of neck mass, states this is improving. He did have CT surgery eval, he states no plan for surgery at this time. He does not wish to undergo any surgery at this time. All remaining ros reviewed and are negative, except as noted. Problem List Medical Problems: (1) Mass of right side of neck Status: Acute Objective Vital Signs Date Time Temp Pulse Resp B/P Pulse Ox O2 Delivery O2 Flow Rate FiO2 01/04/17 08:00 96 Room Air 01/04/17 07:56 36.7 86 18 119/73 95 Room Air 01/04/17 00:39 37.0 92 20 127/76 96 Room Air 01/04/17 00:35 Room Air 01/03/17 16:00 Room Air 01/03/17 14:59 36.6 88 20 129/78 95 Room Air Physical Exam General Appearance: WD/WN, no apparent distress Eyes: EOMI Neck: supple Respiratory/Chest: lungs clear, normal breath sounds, no respiratory distress Cardiovascular: regular rate, rhythm, no edema Abdomen: soft Extremities: non-tender, normal inspection, no pedal edema Neurologic/Psychiatric: alert, oriented x 3 Skin: normal color Laboratory Results Item Value Date Time Fungal Smear - Final Resulted 01/02/17 0000 Bronchial Washings Right Upper Lobe Acid Fast Stain - Final Resulted 01/02/17 0000 Bronchial Washings Right Upper Lobe Gram Stain - Final Complete 01/02/17 0000 Bronchial Washings Right Lower Lobe Blood Culture - Preliminary Resulted 12/30/16 1205 Blood NO GROWTH TO DATE. Blood Culture - Preliminary Resulted 12/30/16 1200 Blood NO GROWTH TO DATE. Assessment and Plan (1) Granulomatous disease Assessment & Plan: AFB smear negative, however, remain concerned for TB. This was discussed extensively with pt. He is anxious to leave hospital but understands the public health component. He was informed of negative smear, he was informed that cultures will not be final for 6 weeks. with granuloma seen on neck pathology, pleural based mass with central necrosis on ct, + IGRA, and recent immigration from [place] this remains concerning for TB, even with negative smear. Discussed with primary and ct surgery today, no plans for surgery at this time. Will start pt on tb meds and follow cultures. will need continued follow up with [facility] post d/c from hospital. Pt understands that cultures are negative at this point and may take weeks to grow, he is agreeable to emperic therapy for TB at this time. will start today. LFTS nml on admission , did discuss side effects with pt today. If no TB isolated at six weeks and no change in ct appearance with TB meds will re visit with ct surgery for further workup. (2) Neck mass (3) Positive QuantiFERON-TB Gold test Continued [facility] stay due to: other (Airborne precaution isolation required) Discharge planning: home
[2017-01-04] MEDS ORDERED: RFM300 PO (11:20)
[2017-01-04] MEDS ORDERED: [UNRECOGNIZED DRUG - CODE] PO (11:20)
[2017-01-04] MEDS ORDERED: ISN300 PO (11:20)
[2017-01-04] MEDS ORDERED: PYR500 PO (11:20)
--- NOTE | 2017-01-04 11:35 | Discharge Instructions ---
Discharge Instructions Admission Reason for Admission: Neck Mass Discharge Discharge Diagnosis / Problem: neck/pulmonary mass-possible TB Discharge Goals Goal(s): Improve disease control, Diagnostic testing Activity Recommendations Activity Limitations: as noted below . You have been treated in the hospital for a neck mass and pulmonary lesions. It is possible that you have active tuberculosis. You have undergone a bronchoscopy on 01/02. The preliminary results do not show signs of tuberculosis. However, the official cultures will take 6 weeks to grow. It is still very much a possibility that you do indeed have active tuberculosis Please minimize your time in public places. This is to protect the community as tuberculosis is very contagious and its active form Please wear a mask at all times when in a public setting Please defer to other instructions from the department of health Please take medications as prescribed DO NOT SKIP DOSES Blood work will need to be done to monitor your liver function while on these medications Please follow-up as scheduled with following: -Dr. Jaquez from infectious disease -[facility] -Dr. Avendaño from thoracic surgery Return to the emergency department if you have any of the following symptoms: -Fever of 100.4F or greater -Coughing up blood -Chest pain -Shortness of breath Current Hospital Diet Patient's current hospital diet: Regular Diet Discharge Diet Recommended Diet: Regular Diet Procedures Procedures Performed: bronchoscopy 01/02 Pending Studies Studies pending at discharge: yes List of pending studies: sputum culture Medical Emergencies . Who to Call and When: Medical Emergencies: If at any time you feel your situation is an emergency, please call 911 immediately. . Non-Emergent Contact Non-Emergency issues call your: Primary Care Provider, Specialist (infectious disease) Call Non-Emergent contact if: temperature is above 100.5 . . "Provider Documentation" section prepared by Krys Daley. VTE Core Measure Inpt VTE Proph given/why not?: Jc Sow, TICO's
[2017-01-04 11:41] VITALS: BP 119/73; PULSE 86; TEMP 36.7; O2SAT 96
[2017-01-04] MEDS ORDERED: ETHAMBUTOL HCL 400 MG TAB PO SCH (12:00)
[2017-01-04] MEDS ORDERED: ISONIAZID 300 MG TAB PO SCH (12:00)
[2017-01-04] MEDS ORDERED: PYRAZINAMIDE 500 MG TAB PO SCH (12:00)
[2017-01-04] MEDS ORDERED: PYRIDOXINE HCL 50 MG TAB PO SCH (12:00)
[2017-01-04] MEDS ORDERED: RIFAMPIN 300 MG CAP PO SCH (12:00)
--- NOTE | 2017-01-04 12:12 | Discharge Summary ---
Discharge Summary Admission Date: Dec 30, 2016 at 13:36 Discharge Date: Jan 04, 2017 Discharge Disposition: Home Principal Diagnosis: neck/pulmonary mass-? TB Procedures: Bronchoscopy 01/02/2017 Consultations: infectious disease pulmonary thoracic surgery (Krys Daley PA-C) Medication Reconciliation New Medications: Ethambutol HCl (Myambutol) 400 Mg Tab 1200 MG PO DAILY for 120 Days, TAB Isoniazid (Isoniazid) 300 Mg Tab 300 MG PO QAM for 120 Days, TAB Pyrazinamide (Pyrazinamide) 500 Mg Tab 1500 MG PO QAM for 120 Days, TAB Rifampin (Rifampin) 300 Mg Cap 600 MG PO QAM for 120 Days, CAP Referrals At Discharge Follow up Referrals: Infectious Disease - Within 1-2 Weeks with Jennifer. Jaquez D.O. Staff Auditor Referral - Within 2 Weeks with Cristian Brooks MD Discharge Exam Patient feeling fine today. Denies chest pain, hemoptysis, shortness of breath , fever or chills. No sweating. Anxious to be discharged home. 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 Was initially painful. No other infectious symptoms such as cough, hemoptysis, fever. The patient was evaluated at [facility]. A CT scan was performed which noted pulmonary lesions suspicious for possible TB. Other differentials would include a neoplastic process versus sarcoidosis -The patient underwent a biopsy in the emergency department, which showed granulomatous tissue and lymphocytes. No signs of malignancy -The patient was admitted to the medical floor. -QuantiFERON gold positive -We tried to obtain sputum for AFB on numerous occasions with no success. He was even given nebulizer treatments with hypertonic saline, and still could not produce any sputum -On 01/02, the patient underwent a diagnostic bronchoscopy. Sputum samples were taken-negative to date -ID consult placed -AFB from procedure is negative on 01/04 -Subsequent AFB pending. Only able to produce one further sputum sample -Thoracic surgery was involved for a possible VATS procedure for bx of pulmonary lesions--> decided on conservative tx. Will f/u outpt for repeat CT -ID recs: recommend treatment with isoniazid, rifampin, ethambutol, pyrazinamide for at least 4 weeks--will follow closely with ID -Will need LFT monitoring -Reported to Dept of health-They will monitor oupt therapy DVT prophylaxis -Teds, SCDs, ambulation in the room CODE STATUS -LEVEL I FULL CODE Total Time Spent: Greater than 30 minutes This includes examination of the patient, discharge planning, medication reconciliation, and communication with other providers. (Krys Daley PA-C) LE Physician Supervision Note: I interviewed and examined the patient. Discussed with Krys Daley PAC and agree with findings and plan as documented in the note. Any exceptions or clarifications are listed here: None Pt not interested in open lung biopsy, will empirically treat with ID and follow on cultures, [facility] notified vss lungs are clear, neck mass unchanged will begin 4 drug regime as outlined by ID Documented By: Cristian Tello (Cristian Tello M.D.) Discharge Instructions Please refer to the electronic Patient Visit Report (Discharge Instructions) for additional information. (Krys Daley PA-C) Follow-Up ID-1-2 weeks thoracic sx-within 1 month pulmonary 2 weeks (Krys Daley PA-C) Additional Copies To Jennifer. Jaquez D.O.; Cristian Brooks MD; Masood Avendaño MD
--- NOTE | 2017-01-04 16:11 | SURGERY PROGRESS NOTE ---
DATE: 01/04/2017 DATE: 01/04/2017. Mr. Oh was seen today. I discussed this case with Dr. Carol Jaquez from infectious disease and they were going to begin treatment for his tuberculosis. At this point, I am not eager to offer him anything and he is not eager to have anything. I am concerned about this mass in his right chest which is pleural-based. I would like to see him back in the office in [address] scan. We will not need contrast with that. He and I had a long talk about this today. The mass in his right neck remains. It is still unclear to me that we have answered all of our questions as far as his diagnosis. We will see how he responds to antituberculous therapy.
--- NOTE | 2017-01-18 05:54 | EDITING REQUIRED CODING QUERY ---
PATHOLOGY To promote full compliance with coding requirements relating to patient care, physician participation is requested in all cases of dehairer uncertainty. Please assist us with the question(s) below: Patient admitted witb neck and lung masses. Diagnostic bronchoscopy with specimens performed. Quantiferon Gold test positive. AFB negative on 01/04. Subsequent AFB pending at time of discharge. Patient treated with 4 drug regime. Please review the Pathology report and please document any relevant diagnosis(es) below: Diagnosis(es): Thank you NITA Joy CCS
[2017-01-27 14:59] LABS: HERPES SIMPLEX CULT SOURCE RESPIRATORY-RUL/RLL; HERPES SIMPLEX VIRUS CULT NOT ISOLATED (NOT ISOLATED)
== END 2017-01-04 13:45 | disposition home or self-care (01) | DRG 168 ==
LOC: ENRESERVDT → ENRESERVTM → C.EDB 11:08 → C.4E 13:36 → UNDOADMIN 13:36
PROVIDERS: ADMIT Hospitalist; ATTEND Internal Medicine
PROC: 0J943ZX Drainage of Right Neck Subcutaneous Tissue and Fascia, Percutaneous Approach, Diagnostic (ICD-10-PCS; 2016-12-30)
PROC: 0B9F8ZX Drainage of Right Lower Lung Lobe, Via Natural or Artificial Opening Endoscopic, Diagnostic (ICD-10-PCS; principal; 2017-01-02)
PROC: 0B9C8ZX Drainage of Right Upper Lung Lobe, Via Natural or Artificial Opening Endoscopic, Diagnostic (ICD-10-PCS; principal; 2017-01-02)
PROC: 0B9D8ZX Drainage of Right Middle Lung Lobe, Via Natural or Artificial Opening Endoscopic, Diagnostic (ICD-10-PCS; principal; 2017-01-02)
DX: A15.0 Tuberculosis of lung (principal)